=== PATIENT | male | born 1995 | race Caucasian/White ===

== ENCOUNTER 2019-06-09 09:41 | Emergency (ER) | payer OTHER ==
[~2019-06-09] VITALS: Ht 182.8 cm; Wt 81.8 kg
--- NOTE | 2019-06-09 10:12 | ED Integumentary General ---
General Chief Complaint: Skin/Wound Problems Stated Complaint: RASH ON L HAND Nursing Triage Note: PT AMB TO [facility] WITH COMPLAINT OF RASH ON LEFT HAND. STATES STARTED A WEEK AGO. STATES HAS PUT CREAMS ON IT BUT HAS NOT IMPROVED. Source: patient Exam Limitations: no limitations History of Present Illness Date Seen by Provider: Jun 09, 2019 Time Seen by Provider: 09:57 Initial Comments Patient presents to ER by private conveyance with chief complaint of about a week having a rash and itching and irritated. He has used hydrocortisone cream with no success as well as triple antibiotic ointment and lotion might have this dry skin. He denies a history of skin disorders such as eczema. 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 He works at [employer]. He's not had any fevers chills or drainage from the rash. It is currently covered with triple antibiotic ointment. Allergies and Home Medications Allergies Coded Allergies: No Known Drug Allergies (Unverified , 06/09/19) Patient Home Medication List Home Medication List Reviewed: Yes Review of Systems Review of Systems Constitutional: No chills, No fever EENTM: No ear discharge, No ear pain Respiratory: No cough, No dyspnea on exertion Cardiovascular: No chest pain, No edema Past Cizarjh-Micuvp-Habwaq Hx Patient Social History Alcohol Use: Occasionally Uses Recreational Drug Use: No Smoking Status: Current Everyday Smoker Type Used: Cigarettes Recent Foreign Travel: No Contact w/Someone Who Travel: No Recent Infectious Disease Expo: No Recent Hopitalizations: No Physical Abuse: No Sexual Abuse: No Mistreated: No Fear: No Immunizations Up To Date Tetanus Booster (TDap): Unknown PED Vaccines UTD: Yes Seasonal Allergies Seasonal Allergies: No Past Medical History Surgeries: Yes Tonsillectomy Respiratory: No Cardiac: No Neurological: No Genitourinary: No Gastrointestinal: No Musculoskeletal: No Endocrine: No HEENT: No Cancer: No Psychosocial: No Integumentary: No Blood Disorders: No Physical Exam Vital Signs Vital Signs - First Documented 06/09/19 09:47 Temp 37.6 Pulse 97 Resp 20 B/P (MAP) 155/92 (113) Pulse Ox 97 O2 Delivery Room Air Capillary Refill : Less Than 3 Seconds General Appearance: WD/WN, no apparent distress Cardiovascular: normal peripheral pulses, regular rate, rhythm Respiratory: no respiratory distress, no accessory muscle use Neurologic/Psychiatric: no motor/sensory deficits, alert, normal mood/affect, oriented x 3 Skin: rash (erythematous papular rash without pustules or leg. This distributed over the dorsum of bilateral hands. Nothing in between fingers.) Progress/Results/Core Measures Results/Orders Vital Signs/I&O 06/09/19 09:47 Temp 37.6 Pulse 97 Resp 20 B/P (MAP) 155/92 (113) Pulse Ox 97 O2 Delivery Room Air Blood Pressure Mean: 113 Progress Progress Note : Time: 10:09 Progress Note Does not appear to be scabies or contagious. Looks like contact dermatitis. Instructed him proper use of PPE. We'll try a more potent steroid cream. He does not have a rash anywhere else and oral steroids were offered but he would prefer to avoid the side effects. Departure Impression Primary Impression: Allergic contact dermatitis Qualified Codes: L23.9 - Allergic contact dermatitis, unspecified cause Disposition: 01 HOME, SELF-CARE Condition: Stable Departure-Patient Inst. Decision time for Depature: 10:10 Referrals: NO,LOCAL PHYSICIAN (PCP) Primary Care Physician YOLY MAXWELL MD Patient Instructions: Contact Dermatitis (DC) Add. Discharge Instructions: Keep the skin moisturized. Twice a day apply the triamcinolone 1 g to each hand for the next week. If at the end of the week you are still having a rash by one week then you need to follow-up with primary care or student health for reevaluation. Keep the hands covered with appropriate gloves if operating in a soiled/con taminated environment. Otherwise keep them open to air. All discharge instructions reviewed with patient and/or family. Voiced understanding. Scripts Triamcinolone Acet (Triamcinolone Acetonide 0.1% Ointment) 15 Gm Oint 1 GM TP BID for 7 Days, #1 TUBE 0 Refills Prov: DAYNA CRAVEN 06/09/19 Work/School Note: Work Release Form Date Seen in the Emergency Department: Jun 09, 2019 Return to Work: Jun 09, 2019 Restrictions: Need Release from Doctor Other Restrictions Listed Below: Wear gloves if working in a soiled environment until 06/16/19. DAYNA CRAVEN Jun 09, 2019 10:12
[2019-06-09] MEDS ORDERED: TR1O15 TP (10:15)
[2019-06-09 10:24] VITALS: BP 155/92
== END 2019-06-09 10:24 | disposition home or self-care (01) ==
LOC: EDUNIT# 09:41 → ER 09:42
DX: L23.9 Allergic contact dermatitis, unspecified cause (principal); F17.210 Nicotine dependence, cigarettes, uncomplicated; Z90.89 Acquired absence of other organs
CPT/HCPCS: 99282